=== PATIENT | male | born 1945 | race Caucasian/White ===

== ENCOUNTER 2016-09-23 02:07 | Emergency (ER) | payer OTHER, MEDICARE ==
[2016-09-23 02:29] VITALS: BMI 28.1
[2016-09-23 03:33] LABS: BASOPHIL 0.4 % (0-2.0); EOSINOPHIL 1.1 % (0-4.5); MCH 31.6 pg (25.7-33.7); MCHC 34.9 g/dl (32.0-35.9); MEAN CELL VOLUME 90.6 fl (80-96); MEAN PLT VOLUME 6.8 fl (7.5-11.1); NEUTROPHILS 80.5 % (42.8-82.8); PLATELET COUNT 132 K/MM3 (134-434); RDW 13.6 % (11.9-15.9); WHITE BLOOD COUNT 9.7 K/mm3 (4.0-10.0)
--- NOTE | 2016-09-23 03:48 | PDOC ---
History of Present Illness - General Chief Complaint: Blood Sugar Problem Stated Complaint: HYPOGLYCEMIA Time Seen by Provider: 09/23/16 02:20 History Source: Patient, Care Provider Exam Limitations: No Limitations - History of Present Illness Initial Comments: 09/23/16 03:43 70yo Male patient w/ PmHx: HLD, HTN, DM, GERD, Cardiac stents presents to ED via EMS from home. Patient received cardiac stents on due to failed stress test. Patient reports procedure done at [facility] by Dr. Adams. He states he got up to use bathroom and woke up in ambulance. EMS reports [id number]. He reported feeling light headed. Currently taking Plavix and ASA. Patient also on Isoniazid and Pyridoxine for potential TB exposure, although he states all testing were negative. He denies CP, abd pain, back pain, n/v/d, neck pain, confusion or any other complaints at this time. Modifying Factors: worse with: cold therapy, eating, immobilization, medication , movement, rest, other Associated Symptoms: reports: syncope, weakness. denies: denies symptoms, chest pain, cough, diaphoresis, fever/chills, headaches, loss of appetite, malaise, nausea/vomiting, rash, seizure, shortness of breath, other Aspirin Received prior to arrival: Yes: provided at home Asa Contraindications(Core Measure): Yes: Plavix Past History - Travel Traveled outside of the country in the last 30 days: No Close contact w/someone who was outside of country & ill: No - Past Medical History Allergies/Adverse Reactions: Allergies Allergy/AdvReac Type Severity Reaction Status Date / Time No Known Allergies Allergy Verified 09/23/16 02:29 Home Medications: Ambulatory Orders Aspirin [ASA -] 81 mg PO DAILY 08/08/15 Atorvastatin Ca [Lipitor -] 20 mg PO HS 08/08/15 Clopidogrel Bisulfate [Clopidogrel] 75 mg PO DAILY 08/08/15 Glipizide [Glipizide ER] 10 mg PO TID 08/08/15 Insulin Lispro [Humalog] 4 unit SQ ASDIR 08/08/15 Liraglutide [Victoza -] 1.8 mg SQ DAILY 08/08/15 Lisinopril [Prinivil -] 5 mg PO DAILY 08/08/15 Cardiac Disorders: Yes Diabetes: Yes HTN: Yes Hypercholesterolemia: Yes - Surgical History Cardiac Surgery: Yes (Cardiac stent) - Immunization History Immunization Up to Date: No - Psycho/Social/Smoking Cessation Hx Anxiety: No Suicidal Ideation: No Smoking History: Former smoker Have you smoked in the past 12 months: No If you are a former smoker, when did you quit?: 1969 Information on smoking cessation initiated: No Hx Alcohol Use: No Drug/Substance Use Hx: No Substance Use Type: None Review of Systems - Review of Systems Able to Perform ROS?: Yes Is the patient limited Japanese proficient: No Constitutional: No: Chills, Fever Respiratory: No: Cough, Shortness of Breath, Wheezing, Hemoptysis Cardiac (ROS): Yes: Lightheadedness, Syncope, Other (Syncope). No: Chest Pain, Palpitations, Chest Tightness ABD/GI: No: Diarrhea, Nausea, Vomiting, Abdominal cramping : No: Burning, Dysuria, Frequency, Flank Pain, Hematuria Musculoskeletal: No: Back Pain, Muscle Pain, Muscle Weakness Integumentary: No: Bruising, Dryness, Erythema, Sweating Neurological: Yes: Weakness. No: Headache, Seizure, Ataxia, Dizziness All Other Systems: Reviewed and Negative *Physical Exam - Vital Signs Last Vital Signs Temp Pulse Resp BP Pulse Ox 97.4 F L 64 19 131/77 97 09/23/16 02:18 09/23/16 02:18 09/23/16 02:18 09/23/16 02:18 09/23/16 02:18 - Physical Exam General Appearance: Yes: Nourished, Appropriately Dressed. No: Apparent Distress, Mild Distress, Moderate Distress, Severe Distress HEENT: positive: EOMI, JOSUE, Normal ENT Inspection, Normal Voice, Symmetrical, TMs Normal, Pharynx Normal. negative: Pharyngeal Erythema, Tonsillar Exudate, Tonsillar Erythema, Nasal Congestion, Rhinorrhea, TM Bulging, TM Dull, TM Erythema Neck: positive: Trachea midline, Supple. negative: Rigid, Decreased range of motion, Stridor, Lymphadenopathy (R), Lymphadenopathy (L) Respiratory/Chest: positive: Lungs Clear, Normal Breath Sounds. negative: Chest Tender, Respiratory Distress, Accessory Muscle Use, Labored Respiration, Rapid RR, Crackles, Rales, Stridor, Wheezing Cardiovascular: positive: Regular Rhythm, Regular Rate. negative: Edema, JVD, Murmur Gastrointestinal/Abdominal: positive: Normal Bowel Sounds, Soft. negative: Distended, Guarding, Rebound, Tenderness Musculoskeletal: positive: Normal Inspection. negative: CVA Tenderness Extremity: positive: Normal Capillary Refill, Normal Inspection, Normal Range of Motion. negative: Swelling, Calf Tenderness, Erythema, Inflammation Integumentary: positive: Normal Color, Dry, Warm. 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 KIDD REGARDING PATIENT TREATMENT. HE WOULD LIKE PATIENT TO REMAIN IN ED, HE WILL EVALUATE PATIENT IN AM AND DECIDE TO D/C OR NOT. PATIENT AND FAMILY MADE AWARE. *DC/Admit/Observation/Transfer - Discharge Dispostion Condition at time of disposition: Guarded
[2016-09-23 04:08] LABS: ALBUMIN 3.3 g/dl (3.4-5.0); ANION GAP 10 (8-16); BILIRUBIN,TOTAL 0.9 mg/dL (0.2-1.0); CALCIUM 7.6 mg/dL (8.5-10.1); CO2 26 mmol/L (21-32); COCKROFT - GAULT 74.08; CREATININE 1.2 mg/dL (0.7-1.3); GLUCOSE,RANDOM 73 mg/dL (74-106); SGOT/AST 19 U/L (15-37); SGPT/ALT 18 U/L (12-78); TOT PROT 6.1 g/dl (6.4-8.2)
[2016-09-23 04:10] LABS: ALK PHOS 77 U/L (45-117); TROPONIN I < 0.02 ng/ml (0.00-0.05)
[2016-09-23] MEDS ORDERED: DEXTROSE 5%-0.45% SALINE 1,000 ML IV SCH (05:15)
--- NOTE | 2016-09-23 07:26 | PDOC ---
ED Treatment Course - LABORATORY CBC & Chemistry Diagram: 09/23/16 03:25 09/23/16 03:25 - ADDITIONAL ORDERS Additional order review: Laboratory Results 09/23/16 03:25 Sodium 137 Potassium 3.6 Chloride 101 Carbon Dioxide 26 Anion Gap 10 BUN 29 H Creatinine 1.2 D Creat Clearance w eGFR > 60 Random Glucose 73 L Calcium 7.6 L Total Bilirubin 0.9 AST 19 ALT 18 Alkaline Phosphatase 77 Creatine Kinase 75 Troponin I < 0.02 Total Protein 6.1 L Albumin 3.3 L 09/23/16 03:25 RBC 4.08 MCV 90.6 MCHC 34.9 RDW 13.6 MPV 6.8 L Neutrophils % 80.5 Lymphocytes % 8.1 Monocytes % 9.9 Eosinophils % 1.1 Basophils % 0.4 Progress Note - Progress Note Progress Note: I have received report from LARY Deshpande regarding this patient. Pt's initial chief complaint: LOC Pt's work up completed prior to sign out: labs, EKG, CXR, UA, CT scan head/ cervical spine Pt treatment given from prior staff: D5 1/2 IV fluids Pt plan to be completed: Awaiting consult from Dr. Carlos Manuel Matos Dispo: Pending Medical Decision Making - Medical Decision Making A/P: 70 y/o male who had cardiac stents placed 5 days ago BIB EMS after LOC at home. EMS FBS = 44. They gave him an amp of D50. Pt's entire work up has been negative. LARY Deshpande spoke with Dr. Carlos Manuel Matos, the patient's PCP, and he is coming in to evaluate him in the ER and most likely discharge the patient. According to Dr. Matos the patient was instructed to d/c his Glipizide but took it last night. Dr. Matos believes this the reason for the LOC and drop in blood sugar. Head CT IMPRESSION: No mass effect or intracranial hemorrhage. No acute abnormality seen. Cervical Spine CT IMPRESSION: No fracture or listhesis seen. Spoke with Dr. Matos on the phone. He has reviewed all of his results. The patient feels well. Dr. Matos would like him discharged to f/u with him in his office tomorrow morning. Dr. Matos instructed me to tell the patient NOT to take Glipizide. Spoke with the patient. He has eaten and feels well. Gave him all results and plan for discharge and he is happy. I instructed the patient to discontinue the glipizide. I also instructed him to f/u at Dr. Matos's office tomorrow. He states he will do so. Instructed him to return to the ER with any worsening or concerning symptoms. The patient verbalizes understanding of all instructions, has no further questions and is awaiting discharge. *DC/Admit/Observation/Transfer Diagnosis at time of Disposition: Loss of consciousness associated with intracranial injury, Hypoglycemia - Discharge Dispostion Disposition: HOME Condition at time of disposition: Guarded - Referrals Referrals: Carlos Manuel Matos MD [Primary Care Provider] - - Patient Instructions Printed Discharge Instructions: DI for Closed Head Injury, DI for Hypoglycemia Additional Instructions: Discharge Instructions: -DO NOT TAKE GLIPIZIDE -Dr. Matos wants to see you in his office tomorrow -The Cat Scan of your head and neck were negative -Return to the ER immediately with any worsening or concerning symptoms
[2016-09-23 08:01] LABS: URINE APPEARANCE CLEAR; URINE BILIRUBIN NEGATIVE (NEGATIVE); URINE BLOOD NEGATIVE (NEGATIVE); URINE COLOR STRAW; URINE GLUCOSE (UA) NEGATIVE (NEGATIVE); URINE KETONE NEGATIVE (NEGATIVE); URINE LEUK ESTERASE NEGATIVE (NEGATIVE); URINE NITRITE NEGATIVE (NEGATIVE); URINE PROTEIN NEGATIVE (NEGATIVE); URINE UROBILINOGEN NEGATIVE E.U./dl (0.2-1.0)
[2016-09-23 10:33] VITALS: BP 146/77; PULSE 72; TEMP 97.9
--- NOTE | 2016-09-23 12:22 | EKG ---
Test Reason : Blood Pressure : / mmHG Vent. Rate : 063 BPM Atrial Rate : 063 BPM P-R Int : 144 ms QRS Dur : 090 ms QT Int : 424 ms P-R-T Axes : 011 032 015 degrees QTc Int : 433 ms POOR DATA QUALITY, INTERPRETATION MAY BE ADVERSELY AFFECTED NORMAL SINUS RHYTHM NORMAL ECG NO PREVIOUS ECGS AVAILABLE Confirmed by ELVIN GREGG MD ([id number]) on 09/23/2016 12:22:40 PM Referred By: Confirmed By:ELVIN GREGG MD
== END 2016-09-23 10:31 | disposition home or self-care (01) ==
LOC: JER 02:07
PROC: 3E0337Z Introduction of Electrolytic and Water Balance Substance into Peripheral Vein, Percutaneous Approach (ICD-10-PCS; principal; 2016-09-23)
DX: S06.899A Other specified intracranial injury with loss of consciousness of unspecified duration, initial encounter (principal); E11.649 Type 2 diabetes mellitus with hypoglycemia without coma; Z79.4 Long term (current) use of insulin; Z79.84 Long term (current) use of oral hypoglycemic drugs; I10 Essential (primary) hypertension; E78.00 Pure hypercholesterolemia, unspecified; K21.9 Gastro-esophageal reflux disease without esophagitis; Z95.5 Presence of coronary angioplasty implant and graft
CPT/HCPCS: 36415; 70450-TC; 71010-TC; 72125-TC; 80053; 81003; 82550; 84484; 85025; 93005; 93010; 96360; 96361; 99283-25